=== PATIENT | female | born 1940 | race Caucasian/White ===

== ENCOUNTER 2016-05-27 13:24 | Emergency (ER) | payer MEDICARE, MEDICAID ==
[~2016-05-27] VITALS: Ht 165.1 cm; Wt 83.9 kg
[~2016-05-27 13:24] MED LIST: LOSA25TA3; METO25TA3; UNABLE TO RECALL
[2016-05-27 13:47] LABS: BASOPHILS % (AUTO) 0.3 % (0.0-2.0); DIFF TOTAL % 100 %; EOSINOPHILS % (AUTO) 0.2 % (0.0-6.0); HEMATOCRIT 46 % (33-45); HEMOGLOBIN 14.6 g/dL (11.5-14.8); LYMPHOCYTES # (AUTO) 0.8 /CMM (0.8-4.8); LYMPHOCYTES % (AUTO) 7.8 % (20.0-44.0); MEAN CORPUSCULAR HEMOGLOBIN 28 PG (26.0-33.0); MEAN CORPUSCULAR HGB CONC 32 g/dl (31.0-36.0); MEAN CORPUSCULAR VOLUME 89 fL (82-100); MONOCYTES # (AUTO) 0.3 /CMM (0.1-1.30); MONOCYTES % (AUTO) 2.8 % (2.0-12.0); NEUTROPHILS # (AUTO) 9.1 /CMM (1.8-8.9); NEUTROPHILS % (AUTO) 88.9 % (43.0-81.0); PLATELET COUNT (AUTO) 193 /CMM (150-450); RED BLOOD CELL COUNT(AUTO) 5.14 MIL/uL (4.0-5.2); WHITE BLOOD COUNT (AUTO) 10.2 K/uL (4.3-11.0)
[2016-05-27 14:00] LABS: ANION GAP 18 (5-14); CALCIUM, SERUM 9.4 mg/dL (8.5-10.1); CARBON DIOXIDE 24 mmol/L (21-32); CHLORIDE 104 mmol/L (98-107); CREATININE 1.1 mg/dL (0.6-1.3); GLUCOSE 159 mg/dL (74-106); POTASSIUM 3.8 mmol/L (3.5-5.1); SODIUM SERUM 142 mmol/L (136-145); UREA NITROGEN, BLOOD 19 mg/dL (7-18)
[2016-05-27 14:03] LABS: INR 1.06 (0.87-1.13); PROTHROMBIN TIME 11.1 SECS (9.5-12.7)
[2016-05-27 14:09] LABS: TROPONIN I < 0.017 ng/mL (0.00-0.056)
[2016-05-27 15:16] VITALS: BP 142/83
== END 2016-05-27 15:17 | disposition home or self-care (01) ==
LOC: ER 13:24
DX: S82.492A Other fracture of shaft of left fibula, initial encounter for closed fracture (principal); R51 Headache; F03.90 Unspecified dementia, unspecified severity, without behavioral disturbance, psychotic disturbance, mood disturbance, and anxiety; E11.9 Type 2 diabetes mellitus without complications; I10 Essential (primary) hypertension; W18.30XA Fall on same level, unspecified, initial encounter; Y93.89 Activity, other specified; Y92.89 Other specified places as the place of occurrence of the external cause; Y99.8 Other external cause status
CPT/HCPCS: 36415; 70450; 71010; 73503; 73610; 80048; 84484; 85025; 85730; 93005; 99285; A4606; 73510-TC; Z7610

== ENCOUNTER 2016-06-07 09:16 | Emergency (ER) | payer MEDICARE, MEDICAID ==
[~2016-06-07] VITALS: Ht 157.5 cm; Wt 74.8 kg
[2016-06-07] MEDS ORDERED: TDAP [DIPH/PERTUSSIS/TET] 0.5 ML VIAL IM ONE ×2 (09:30→09:32)
[2016-06-07] MEDS ORDERED: IV NS 0.9% 500 ML BAG IV ONE (09:30)
[2016-06-07 09:42] LABS: BASOPHILS % (AUTO) 0.1 % (0.0-2.0); DIFF TOTAL % 100 %; HEMATOCRIT 45 % (33-45); HEMOGLOBIN 14.9 g/dL (11.5-14.8); LYMPHOCYTES # (AUTO) 0.6 /CMM (0.8-4.8); LYMPHOCYTES % (AUTO) 4.6 % (20.0-44.0); MEAN CORPUSCULAR HEMOGLOBIN 29 PG (26.0-33.0); MEAN CORPUSCULAR HGB CONC 33 g/dl (31.0-36.0); MEAN CORPUSCULAR VOLUME 88 fL (82-100); MONOCYTES # (AUTO) 0.5 /CMM (0.1-1.30); MONOCYTES % (AUTO) 3.5 % (2.0-12.0); NEUTROPHILS # (AUTO) 12.3 /CMM (1.8-8.9); NEUTROPHILS % (AUTO) 91.8 % (43.0-81.0); PLATELET COUNT (AUTO) 214 /CMM (150-450); RED BLOOD CELL COUNT(AUTO) 5.09 MIL/uL (4.0-5.2); WHITE BLOOD COUNT (AUTO) 13.4 K/uL (4.3-11.0)
[2016-06-07 09:48] LABS: ANION GAP 21 (5-14); CALCIUM, SERUM 8.9 mg/dL (8.5-10.1); CARBON DIOXIDE 24 mmol/L (21-32); CHLORIDE 100 mmol/L (98-107); CREATININE 1.2 mg/dL (0.6-1.3); POTASSIUM 4.1 mmol/L (3.5-5.1); SODIUM SERUM 141 mmol/L (136-145); UREA NITROGEN, BLOOD 20 mg/dL (7-18)
[2016-06-07 09:54] LABS: ALANINE AMINOTRANSFERASE 75 U/L (12-78); ASPARTATE AMINOTRANSFERASE 59 U/L (15-37); BILIRUBIN,DIRECT 0.2 mg/dL (0.0-0.2); BILIRUBIN,TOTAL 1.1 mg/dL (0.2-1.0); GLUCOSE 138 mg/dL (74-106); INDIRECT BILIRUBIN 0.9 mg/dL (0.0-1.1); TOTAL PROTEIN, SERUM 7.4 g/dL (6.4-8.2)
[2016-06-07 09:56] LABS: TROPONIN I 0.018 ng/mL (0.00-0.056)
[2016-06-07 10:01] LABS: INR 1.06 (0.87-1.13); PROTHROMBIN TIME 11.5 SECS (9.5-12.7)
[2016-06-07 10:05] LABS: THYROID STIMULATING HORMONE 2.335 uIU/mL (0.358-3.74)
[2016-06-07 11:11] LABS: KETONES,URINE 15 (NEGATIVE); LEUKOCYTE ESTERASE ,URINE Small (NEGATIVE)
[2016-06-07 11:18] LABS: ADD UA MICROSCOPIC YES
[2016-06-07 11:20] LABS: ADD URINE CULTURE NO
[2016-06-07 11:45] VITALS: BP 138/86
== END 2016-06-07 11:46 | disposition home or self-care (01) ==
LOC: ER 09:18
DX: S00.81XA Abrasion of other part of head, initial encounter (principal); F03.90 Unspecified dementia, unspecified severity, without behavioral disturbance, psychotic disturbance, mood disturbance, and anxiety; N39.0 Urinary tract infection, site not specified; R40.4 Transient alteration of awareness; R79.1 Abnormal coagulation profile; I10 Essential (primary) hypertension; E11.9 Type 2 diabetes mellitus without complications; W18.30XA Fall on same level, unspecified, initial encounter; Y93.89 Activity, other specified; Y92.89 Other specified places as the place of occurrence of the external cause; Y99.8 Other external cause status
CPT/HCPCS: 36415; 70450; 70486; 71010; 72125; 80048; 80076; 81001; 84443; 84484; 85025; 85730; 87086; 90471; 90715; 93005; 99285; A4606; G0481; 81000-TC; G6040-TC; Z7610

== ENCOUNTER 2016-11-12 09:59 | Inpatient (IN) | payer MEDICARE, MEDICAID ==
[~2016-11-12] VITALS: Ht 162.6 cm; Wt 81.6 kg
[~2016-11-12 09:59] MED LIST changes: -METO25TA3; +METO25TA3 PO
[2016-11-12] MEDS ORDERED: IV NS 0.9% 1,000 ML BAG IV ONE (11:00)
--- NOTE | 2016-11-12 11:04 | NUR ---
RECIEVED PT AT THIS TIME, RESTING QUIETLY IN BED. NAD NOTED. NO VISIBLE DEFORMITIES SECONDARY TO FALL NOTED. DOES NOT APPEAR TO BE IN PAIN. RESP EVEN UNLABORED. SKIN WARM NONDIAPHORETIC.
[2016-11-12] MEDS ORDERED: IV SET PRIMARY 1 EA INFUS.SET MC ONE (11:07)
[2016-11-12] MEDS ORDERED: IV NS 0.9% 1,000 ML ONE (11:07)
[2016-11-12 11:08] LABS: BASOPHILS % (AUTO) 0.4 % (0.0-2.0); EOSINOPHILS # (AUTO) 0.1 /CMM (0.0-0.7); EOSINOPHILS % (AUTO) 1.2 % (0.0-6.0); HEMATOCRIT 43 % (33-45); LYMPHOCYTES # (AUTO) 1.1 /CMM (0.8-4.8); LYMPHOCYTES % (AUTO) 15.4 % (20.0-44.0); MEAN CORPUSCULAR HEMOGLOBIN 29 PG (26.0-33.0); MEAN CORPUSCULAR HGB CONC 33 g/dl (31.0-36.0); MEAN CORPUSCULAR VOLUME 90 fL (82-100); MONOCYTES # (AUTO) 0.3 /CMM (0.1-1.30); MONOCYTES % (AUTO) 4.7 % (2.0-12.0); NEUTROPHILS # (AUTO) 5.9 /CMM (1.8-8.9); NEUTROPHILS % (AUTO) 78.3 % (43.0-81.0); PLATELET COUNT (AUTO) 162 /CMM (150-450); RDW COEFFICIENT OF VARIATION 12.6 (11.5-15.0); RED BLOOD CELL COUNT(AUTO) 4.76 MIL/uL (4.0-5.2); WHITE BLOOD COUNT (AUTO) 7.4 K/uL (4.3-11.0)
[2016-11-12 11:18] LABS: CALCIUM, SERUM 9.2 mg/dL (8.5-10.1); CARBON DIOXIDE 30 mmol/L (21-32); CHLORIDE 104 mmol/L (98-107); GLUCOSE 127 mg/dL (74-106); POTASSIUM 3.6 mmol/L (3.5-5.1); SODIUM SERUM 140 mmol/L (136-145); UREA NITROGEN, BLOOD 13 mg/dL (7-18)
[2016-11-12 11:24] LABS: ALANINE AMINOTRANSFERASE 30 U/L (12-78); ALBUMIN 3.6 g/dL (3.4-5.0); ALKALINE PHOSPHATASE 75 U/L (46-116); ASPARTATE AMINOTRANSFERASE 26 U/L (15-37); BILIRUBIN,DIRECT 0.2 mg/dL (0.0-0.2); BILIRUBIN,TOTAL 0.9 mg/dL (0.2-1.0); TOTAL PROTEIN, SERUM 7.1 g/dL (6.4-8.2)
[2016-11-12 11:26] LABS: INR 1.06 (0.87-1.13); TROPONIN I < 0.017 ng/mL (0.00-0.056)
[2016-11-12 11:49] LABS: APPEARANCE,URINE Slightly Cloudy (CLEAR); BILIRUBIN,URINE Negative (NEGATIVE); BLOOD, URINE Negative Ery/uL (NEGATIVE); COLOR,URINE Yellow (YELLOW); KETONES,URINE Negative (NEGATIVE); LEUKOCYTE ESTERASE ,URINE Negative (NEGATIVE); NITRITE, URINE Negative (NEGATIVE); PH,URINE 5.5 (5.0-8.0); PROTEIN,URINE Negative (NEGATIVE); UGLUCOSE Negative (NEGATIVE); UROBILINOGEN,URINE 0.2 EU/dL (0.2)
--- NOTE | 2016-11-12 12:00 | NUR ---
URINE SAMPLE OBTAINED BY IN AND OUT CATH PER PT'S DAUGHTER'S REQUEST.
--- NOTE | 2016-11-12 12:11 | NUR ---
PT TRANSPORTED TO CT IN STABLE CONDITION
--- NOTE | 2016-11-12 12:44 | NUR ---
RETURNED FROM CT IN STABLE CONDITION
--- NOTE | 2016-11-12 13:11 | NUR ---
DR LANGSTON, ADMITTING MD, AT BEDSIDE
--- NOTE | 2016-11-12 13:19 | NUR ---
REPORT GIVEN TO DIMA MCDONALD FOR ADMISSION
[2016-11-12 14:00] VITALS: BP 137/73
--- NOTE | 2016-11-12 14:00 | NUR ---
RN ADMITTING NOTES: REC'D REPORT FROM JULIET STERILIZATION SPECIALIST. PT WAS TRANSFERRED FROM ER TO TELE VIA GURNEY ACCOMPANIED BY STERILIZATION SPECIALIST AND RELATIVE. PT IS A/O X1 W/ PERIODS OF CONFUSION/ FORGETFULNESS ( PER DTR). PT IS SWEDISH SPEAKING, UNABLE TO UNDERSTAND [place]. HAS R SHOULDER SLING IN PLACE. NOTED R KNEE, R UPPER ARM (DISTAL/ MEDIAL) BRUISING. WOUND PICTURES TAKEN & PLACED IN CHART. HAS LAC G20 SL, FLUSHED, PATENT & INTACT W/ NO SIGNS OF INFECTION/ INFILTRATION NOTED. BELONGINGS CHECKED C/O MELANI RUFF. PROVIDED COMFORT & SAFETY MEASURES. BED KEPT LOW & IN LOCKED POSITION. CALL LIGHT PLACED W/IN REACH. WILL CONTINUE TO MONITOR.
[2016-11-12] MEDS ORDERED: MEMA28CA PO (14:10)
[2016-11-12] MEDS ORDERED: CHOL100044 PO (14:10)
[2016-11-12] MEDS ORDERED: LOSA50TA21 PO (14:10)
[2016-11-12] MEDS ORDERED: CLON0.5T4 PO (14:10)
--- NOTE | 2016-11-12 14:13 | NUR ---
PT TRANSPORTED TO [facility] IN STABLE CONDITION VIA ACLS PROTOCOL
[2016-11-12] MEDS ORDERED: IV NS 0.9% 1,000 ML IV PRN (14:24)
[2016-11-12] MEDS ORDERED: Z GUARD REMEDY 2 OZ OINT TP PRN (14:30)
[2016-11-12] MEDS ORDERED: MAGNESIUM HYDROXIDE 30 ML UDC PO PRN (14:30)
[2016-11-12] MEDS ORDERED: ONDANSETRON HCL/PF 4 MG/2 ML VIAL IVP PRN (14:30)
[2016-11-12] MEDS ORDERED: HYDROCODONE/APAP 5/325MG 1 EACH TABLET PO PRN (14:30)
[2016-11-12] MEDS ORDERED: ACETAMINOPHEN 325 MG TABLET PO PRN (14:30)
[2016-11-12] MEDS ORDERED: MAG HYDROX/AL HYDROX/SIMETH 30 ML UDC PO PRN (14:30)
[2016-11-12] MEDS: PANTOPRAZOLE 40 MG VIAL IV SCH (15:18)
[2016-11-12] MEDS: clonazePAM 0.5 MG TABLET PO SCH (15:18)
[2016-11-12] MEDS: METOPROLOL SUCCINATE 25 MG TAB.SR.24H PO SCH (15:19)
[2016-11-12] MEDS: LOSARTAN POTASSIUM 50 MG TABLET PO SCH (15:19)
[2016-11-12] MEDS: CHOLECALCIFEROL 1,000 UNIT TABLET (VIT D3) PO SCH (15:20)
[2016-11-12 16:00] VITALS: BP 148/76
[2016-11-12] MEDS ORDERED: IV SET PRIMARY PUMP SET 1 EA INFUS.SET MC ONE (16:26)
[2016-11-12] MEDS: MEMANTINE HCL 5 MG TABLET PO SCH (17:00)
--- NOTE | 2016-11-12 19:00 | NUR ---
RN CLOSING NOTES: NO ACUTE CHANGES NOTED W/IN SHIFT. BED ALARM ON PT TRYING TO GET OUT OF BED. PER PT'S DTR JASMIN, PUT SIDERAILS UP X4 AND HIS WILL VISIT THE PT AT 7PM. L AC G20 PL KEPT PATENT W/ NS 1L X 75 CC/HR INFUSING WELL. INFORMED DTR TO BRING PT'S HOME MED (NAMENDA), VERBALIZED UNDERSTANDING. R ARM SLING KEPT IN PLACE. KEPT WELL RESTED. FREQUENT ROUNDS DONE. CALL LIGHT PLACED W/IN REACH. BED KEPT LOW & IN LOCKED POSITION. ENDORSED TO PM RN FOR KAYLIN.
--- NOTE | 2016-11-12 19:45 | NUR ---
IT RECRUITER INITIAL NOTES PT IS IN BED, A/O X1, CENTRAL AFRICAN SPEAKING ONLY, SON AT BEDSIDE. TOLERATING ROOM AIR, SATURATING 96%, ON TELE MONITOR SINUS RHYTHM, REORIENTED PT WITH THE ROOM AND THE USE OF CALL LIGHTS. BED LOCKED AND IN LOWEST POSITION. CALL LIGHTS WITHIN REACH.
[2016-11-12 20:00] VITALS: BP 139/68
--- NOTE | 2016-11-12 20:10 | NUR ---
RN NOTES PT PULLED IV LINE, AND INSISTING TO GET OUT OF BED. REORIENTED AND STAYED WITH THE PT UNTIL SITTER IS AVAILABLE TO PROVIDE SAFETY.
[2016-11-12] MEDS ORDERED: ZOLPIDEM TARTRATE 5 MG TABLET PO PRN (22:00)
[2016-11-13] VITALS: BP 132/70
[2016-11-13 04:00] VITALS: BP 130/67
--- NOTE | 2016-11-13 06:45 | NUR ---
CHARGE AUDITOR CLOSING NOTES NO SIGNIFICANT CHANGES OVERNIGHT, ON ROOM AIR SATURATING WELL, NO S/SX OF DISTRESS NOTED. DENIES OF PAIN. PT IS HAS 1:1 SITTER, FOR PULLING TUBES, ORIENTED PT FREQUENTLY, PROVIDED CALM ENVIRONMENT, ALL SAFETY MEASURES MET, ALL NEEDS MET, SIDE RAILS UP, BED LOCKED IN LOWEST POSITION CALL LIGHT WITHIN REACH. Addendum: 11/13/16 at 0706 by ADRIANA SWAN RN ATTEMPTED TO INSERT IV LINE, NO SUCCESS, WILL ENDORSE AM NURSE FOR CONTINUATION OF CARE.
--- NOTE | 2016-11-13 07:30 | NUR ---
RN INITIAL NOTE REPORT RECEIVED FROM ADRIANA FOR [facility]. PT A/O X1, [place] SPEAKING ONLY. TOLERATING ROOM AIR, SATURATING 100%, ON TELE MONITOR SINUS MARTIN. ALL SAFETY MEASURES IN PLACE. PT PULLED OUT IV NO ACCESS WILL F/U WITH CHARGE NURSE. WILL CONTINUE TO MONITOR.
[2016-11-13 07:34] LABS: EOSINOPHILS # (AUTO) 0.1 /CMM (0.0-0.7); EOSINOPHILS % (AUTO) 1.7 % (0.0-6.0); HEMATOCRIT 41 % (33-45); HEMOGLOBIN 13.9 g/dL (11.5-14.8); LYMPHOCYTES # (AUTO) 0.9 /CMM (0.8-4.8); LYMPHOCYTES % (AUTO) 11.7 % (20.0-44.0); MEAN CORPUSCULAR HEMOGLOBIN 31 PG (26.0-33.0); MEAN CORPUSCULAR HGB CONC 34 g/dl (31.0-36.0); MEAN CORPUSCULAR VOLUME 91 fL (82-100); MONOCYTES # (AUTO) 0.5 /CMM (0.1-1.30); MONOCYTES % (AUTO) 6.6 % (2.0-12.0); NEUTROPHILS # (AUTO) 5.9 /CMM (1.8-8.9); PLATELET COUNT (AUTO) 136 /CMM (150-450); RDW COEFFICIENT OF VARIATION 13.3 (11.5-15.0); RED BLOOD CELL COUNT(AUTO) 4.49 MIL/uL (4.0-5.2); WHITE BLOOD COUNT (AUTO) 7.4 K/uL (4.3-11.0)
[2016-11-13 08:00] VITALS: BP 135/68
[2016-11-13 08:00] LABS: ALANINE AMINOTRANSFERASE 30 U/L (12-78); ALBUMIN 3.3 g/dL (3.4-5.0); ALKALINE PHOSPHATASE 74 U/L (46-116); ASPARTATE AMINOTRANSFERASE 27 U/L (15-37); BILIRUBIN,TOTAL 1.2 mg/dL (0.2-1.0); CALCIUM, SERUM 8.6 mg/dL (8.5-10.1); CARBON DIOXIDE 28 mmol/L (21-32); CHLORIDE 106 mmol/L (98-107); CREATININE 0.8 mg/dL (0.6-1.3); GLUCOSE 122 mg/dL (74-106); PHOSPHORUS 3.7 mg/dL (2.5-4.9); POTASSIUM 3.5 mmol/L (3.5-5.1); SODIUM SERUM 142 mmol/L (136-145); TOTAL PROTEIN, SERUM 6.7 g/dL (6.4-8.2); UREA NITROGEN, BLOOD 11 mg/dL (7-18)
[2016-11-13 08:03] LABS: CHOLESTEROL 123 mg/dL (<200); HDL CHOLESTEROL 34 mg/dL (40-60); LDL 76 mg/dL (0-99); TRIGLYCERIDES 90 mg/dL (30-150)
[2016-11-13] MEDS: CHOLECALCIFEROL 1,000 UNIT TABLET (VIT D3) PO SCH (08:22)
[2016-11-13] MEDS: clonazePAM 0.5 MG TABLET PO SCH (08:22)
[2016-11-13] MEDS: LOSARTAN POTASSIUM 50 MG TABLET PO SCH (08:23)
[2016-11-13] MEDS: METOPROLOL SUCCINATE 25 MG TAB.SR.24H PO SCH (08:23)
[2016-11-13] MEDS: MEMANTINE HCL 5 MG TABLET PO SCH (08:23)
[2016-11-13] MEDS: PANTOPRAZOLE 40 MG VIAL IV SCH (09:00)
--- NOTE | 2016-11-13 09:30 | NUR ---
RN NOTE PROTINIX NOT GIVEN PT PULLED OUT IV WILL F/U WITH CHARGE NURSE.
[2016-11-13 12:00] VITALS: BP 140/70
--- NOTE | 2016-11-13 15:40 | NUR ---
RN NOTE SON EL AND @ BEDSIDE ASKING TO LEAVE AMA. DR. LANGSTON CALLED AND NOTIFIED. COMPLETING EXIT CARE.
--- NOTE | 2016-11-13 16:38 | NUR ---
RN AMA DISCHARGE PT DC HOME PER ORDER OF SON AND DAUGHTER IN LAW. THEY DID NOT WANT TO WAIT FOR ORTHOPEDIC DRRosie GOOD REMOVED ID BAND REMOVED. BELONGING LIST SIGNED. PHOTOS TAKEN AND PUT IN CHART. EXIT CARE DONE. AMA FORM SIGNED BY SON AND PUT IN CHART. DC PAPERWORK GIVEN UNABLE TO SIGNED DUE TO LEAVING AMA. EDUCATED FAMILY ON THE IMPORTANCE OF STAYING DECLINED STAY. DR. LANGSTON AWARE. PHONE NUMBER GIVEN TO F/U FOR SHOULDER FX JOHNNIE DE ANDA [phone]. ALL QUESTIONS ANSWERED. PT CLEAN AND DRY. ASKED FAMILY TO LET ME KNOW WHEN THEY ARE READY TO BE WHEELED OUT. PT DRESSED BY MATTY. SON SAID HE LIVED DOWN THE STRE[address] AND HE WOULD GO GET THE CAR. SON LEFT WITH MOTHER AND DID NOT LET ME KNOW WHEN HE LEFT. INCIDENT REPORT DONE.
== END 2016-11-13 16:45 | disposition left against medical advice (07) | DRG 562 ==
LOC: ER 10:01 → TELE1 12:59
PROVIDERS: ADMIT Internal Medicine; ATTEND Internal Medicine
DX: S42.211A Unspecified displaced fracture of surgical neck of right humerus, initial encounter for closed fracture (principal); G93.40 Encephalopathy, unspecified; G90.8 Other disorders of autonomic nervous system; E11.9 Type 2 diabetes mellitus without complications; F03.90 Unspecified dementia, unspecified severity, without behavioral disturbance, psychotic disturbance, mood disturbance, and anxiety; I10 Essential (primary) hypertension; W19.XXXA Unspecified fall, initial encounter; Y93.9 Activity, unspecified; Y92.009 Unspecified place in unspecified non-institutional (private) residence as the place of occurrence of the external cause; Z91.81 History of falling
CPT/HCPCS: 36415; 70450-TC; 71010-TC; 73030-TC; 73060-TC; 73080-TC; 73564-TC; 80048-TC; 80053-TC; 80061-TC; 80076-TC; 81000-TC; 83735-TC; 84100-TC; 84484-TC; 85025-TC; 85730-TC; 87081-TC; 93307-TC; 93880-TC; A4606; C9113; J7030; Z7610